=== PATIENT | female | born 1945 | race Caucasian/White ===

== ENCOUNTER 2018-08-18 08:59 | Emergency (ER) | payer MEDICARE ==
[2018-08-18] MEDS ORDERED: Metoprolol Succinate 25 MG Tab.ER PO ONE (10:43)
--- NOTE | 2018-08-18 11:23 | EDM.PDOC ---
ED HPI GENERAL MEDICAL PROBLEM - General Chief Complaint: Cardiovascular Problem Stated Complaint: VIA [facility] Time Seen by Provider: 08/18/18 09:15 Source of Information: Reports: Patient History Limitations: Reports: No Limitations - History of Present Illness INITIAL COMMENTS - FREE TEXT/NARRATIVE: pt arrived by ambulance because her heart was rapid and she found that her bp was 167/100. She did not have chest pain but after arrival she did develop some chest pressure. Onset: Today Duration: Hour(s): Location: Reports: Chest, Other ( bp was ) Associated Symptoms: Reports: Other ( elevated bp and chest pressure, rapid heart beat. ) - Related Data Allergies Allergy/AdvReac Type Severity Reaction Status Date / Time ephedrine Allergy Tachycardia Verified 07/04/15 09:34 Penicillins Allergy Rash Verified 07/04/15 09:34 Home Meds: Home Meds Doxycycline Monohydrate 1 cap PO BID 06/16/15 [History] Metoprolol Succinate [Toprol XL] 25 mg PO DAILY 06/16/15 [History] Aspirin [Low Dose Aspirin EC] 1 tab PO DAILY 06/28/15 [History] Multivitamin [Daily Multiple Vitamin] 1 tab PO DAILY 06/28/15 [History] Past Medical History HEENT History: Reports: Impaired Vision Cardiovascular History: Reports: Arrhythmia, Hypertension Genitourinary History: Reports: UTI, Recurrent [employer] History: Reports: Musculoskeletal History: Reports: Arthritis, Osteoarthritis Neurological History: Reports: Migraines Dermatologic History: Reports: Other (See Below) Other Dermatologic History: HS - Infectious Disease History Infectious Disease History: Reports: Chicken Pox, Measles, Mumps - Past Surgical History Head Surgeries/Procedures: Reports: None HEENT Surgical History: Reports: None Cardiovascular Surgical History: Reports: None Female Surgical History: Reports: Section Neurological Surgical History: Reports: None Musculoskeletal Surgical History: Reports: None Dermatological Surgical History: Reports: None Social & Family History - Tobacco Use Smoking Status *Q: Never Smoker - Caffeine Use Caffeine Use: Reports: None - Recreational Drug Use Recreational Drug Use: No ED ROS GENERAL - Review of Systems Review Of Systems: See Below Constitutional: Reports: No Symptoms HEENT: Reports: No Symptoms Respiratory: Reports: No Symptoms Cardiovascular: Reports: No Symptoms ( elevated bp and chest pressure. ), Other Endocrine: Reports: No Symptoms GI/Abdominal: Reports: No Symptoms : Reports: No Symptoms Musculoskeletal: Reports: No Symptoms ED EXAM, GENERAL - Physical Exam Exam: See Below Free Text/Narrative:: Pt arrived with a history of a rapid pulse, elevated bp and some chest pressure when she arrived at the ER. Exam Limited By: No Limitations General Appearance: Alert, No Apparent Distress, Anxious, Other (pupils are equal and reactive. ) Ears: Normal TMs Nose: Normal Inspection Throat/Mouth: Normal Inspection Head: Atraumatic Neck: Normal Inspection Respiratory/Chest: No Respiratory Distress Cardiovascular: Regular Rate, Rhythm, Other ( at first rates were 80s to 90s) GI/Abdominal: Soft, Non-Tender (Female) Exam: Deferred Rectal (Female) Exam: Deferred Back Exam: Normal Inspection Extremities: Normal Inspection Neurological: Alert, Oriented, Normal Cognition Psychiatric: Normal Affect Course - Vital Signs Last Recorded V/S: Last Vital Signs Temp 36.6 C 08/18/18 09:10 Pulse 86 08/18/18 10:50 Resp 19 08/18/18 10:50 BP 142/73 H 08/18/18 10:50 Pulse Ox 96 08/18/18 10:50 - Orders/Labs/Meds Orders: Active Orders 24 hr Category Date Time Status EKG Documentation Completion [RC] ASDIRECTED Care 08/18/18 10:20 Active EKG 12 Lead [EK] Routine Ther 08/18/18 10:20 Ordered Labs: Laboratory Tests 08/18/18 08/18/18 08/18/18 Range/Units 10:33 10:33 10:46 WBC 5.9 (4.5-11.0) K/uL RBC 4.91 (3.30-5.50) M/uL Hgb 15.2 H (12.0-15.0) g/dL Hct 47.7 (36.0-48.0) % MCV 97 (80-98) fL MCH 31 (27-31) pg MCHC 32 (32-36) % Plt Count 185 (150-400) K/uL Neut % (Auto) 73 H (36-66) % Lymph % (Auto) 17 L (24-44) % [place] % (Auto) 7 H (2-6) % Eos % (Auto) 2 (2-4) % Baso % (Auto) 1 (0-1) % Sodium 144 (140-148) mmol/L Potassium 4.0 (3.6-5.2) mmol/L Chloride 105 (100-108) mmol/L Carbon Dioxide 31 (21-32) mmol/L Anion Gap 8.2 (5.0-14.0) mmol/L BUN 31 H (7-18) mg/dL Creatinine 0.8 (0.6-1.0) mg/dL Est Cr Clr Drug Dosing 50.07 mL/min Estimated GFR (MDRD) > 60 (>60) Glucose 90 (74-106) mg/dL Calcium 9.7 (8.5-10.1) mg/dL Total Bilirubin 0.4 (0.2-1.0) mg/dL AST 29 (15-37) U/L ALT 37 (12-78) U/L Alkaline Phosphatase 73 (46-116) U/L Troponin I < 0.017 (0.000-0.056) ng/mL Total Protein 7.4 (6.4-8.2) g/dL Albumin 3.4 (3.4-5.0) g/dL Globulin 4.0 H (2.3-3.5) g/dL Albumin/Globulin Ratio 0.9 L (1.2-2.2) Meds: Medications Discontinued Medications Generic Name Dose Route Start Last Admin Trade Name Freq PRN Reason Stop Dose Admin Metoprolol Succinate 12.5 mg 08/18/18 10:43 08/18/18 10:50 Toprol Xl PO 08/18/18 10:44 12.5 mg ONETIME ONE Administration - Re-Assessments/Exams Free Text/Narrative Re-Assessment/Exam: 08/18/18 11:29 pt had a normal ekg and trop. Her other labs looked good . She was given toprol xl 12.5 mg. Her bp looks good at this point. She has no pressure at this point. Departure - Departure Time of Disposition: 11:40 Disposition: Home, Self-Care 01 Condition: Fair Clinical Impression: Hypertension, Heart palpitations Referrals: PCP,None [Primary Care Provider] - Care Plan Goals: increase toprol 25 mg qam, 12.5 mg in pm. appt with Ronnie paniagua in 1 week. - My Orders Last 24 Hours: My Active Orders 08/18/18 10:20 EKG Documentation Completion [RC] ASDIRECTED EKG 12 Lead [EK] Routine - Assessment/Plan Last 24 Hours: My Active Orders 08/18/18 10:20 EKG Documentation Completion [RC] ASDIRECTED EKG 12 Lead [EK] Routine
[2018-08-18 11:46] VITALS: BP 137/69
== END 2018-08-18 11:53 | disposition home or self-care (01) ==
LOC: JP.ED 08:59
DX: R00.2 Palpitations (principal); I10 Essential (primary) hypertension; Z79.899 Other long term (current) drug therapy; Z88.0 Allergy status to penicillin; Z88.8 Allergy status to other drugs, medicaments and biological substances; Z79.82 Long term (current) use of aspirin
CPT/HCPCS: 36415; 80053; 84484; 85025; 93005; 99285; A9270; 93010

== ENCOUNTER 2020-10-23 17:48 | Emergency (ER) | payer MEDICARE ==
[2020-10-23 17:54] VITALS: BP 167/77; PULSE 78
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
--- NOTE | 2020-10-23 19:22 | CRLCT ---
INDICATION: Head pain. Hallucination. TECHNIQUE: Multiple axial images were obtained through the brain without contrast. Sagittal and coronal re-formatted images were obtained. COMPARISON: None. FINDINGS: The ventricles and sulci are within normal limits. There is no mass effect or midline shift. There is no intracranial hemorrhage. The escobedo-white matter differentiation is unremarkable. There is no fracture seen on bone windows. IMPRESSION: No acute intracranial abnormality. Please note that all CT scans at this facility use dose modulation, iterative reconstruction, and/or weight-based dosing when appropriate to reduce radiation dose to as low as reasonably achievable. Dictated by Osiel Moon MD @ 10/23/2020 7:20:[address] Osiel Moon @ Oct 23 2020 7:20PM
== END 2020-10-23 20:00 | disposition home or self-care (01) ==
LOC: JP.ED 17:48
DX: I10 Essential (primary) hypertension (principal); F22 Delusional disorders; G25.0 Essential tremor; M19.90 Unspecified osteoarthritis, unspecified site; Z88.8 Allergy status to other drugs, medicaments and biological substances; Z88.0 Allergy status to penicillin; Z79.82 Long term (current) use of aspirin
CPT/HCPCS: 36415; 70450; 80053; 81001; 82140; 85025; 99283; 99285-25

== ENCOUNTER 2021-07-09 10:17 | Emergency (ER) | payer MEDICARE ==
[2021-07-09 12:13] VITALS: BP 167/77; PULSE 70
== END 2021-07-09 12:13 | disposition home or self-care (01) ==
LOC: JP.ED 10:17
DX: R00.2 Palpitations (principal); Z88.0 Allergy status to penicillin; Z88.8 Allergy status to other drugs, medicaments and biological substances; Z79.01 Long term (current) use of anticoagulants
CPT/HCPCS: 36415; 80048; 84484; 85025; 93005; 99285-25